=== PATIENT | male | born 1935 | race Caucasian/White ===

== ENCOUNTER 2017-12-30 13:29 | Emergency (ER) | payer MEDICARE, OTHER ==
[~2017-12-30 13:29] MED LIST: ACET325 PO; ALBIPROI INH; ALBU90I INH; ALBU90OI INH; ALLO100 PO; ALPR.5 PO; AMOCLA875 PO; AMOX875 PO; ASPI325; ASPI81CH PO; ASPI81EC PO; ATEN25 PO; ATEN50; ATEN50 PO; AZIT500 PO; BACPOLTO30 TOP; BENZ100A PO; Bactrim Ds Tab1 EACH PO; CEFP200 PO; CITA20 PO; CLIN300 PO; COLCRYS0.6 MG PO; DIAZ5 PO; DIPATR PO; DIPH50 PO; DOC250 PO; DOCU100 PO; FAMO10 PO; FAMO20 PO; FERR325 PO; FIBER LAXATIVE; FINA5 PO; FISH1000 PO; GUAI600T33 PO; HYDACE5325 PO; HYDR1TAB94 PO; IBUP400 PO; ISOMON30 PO; Keflex500 MG PO; LISI10 PO; LISI20; LISI20 PO; LISI5 PO; LOVA20 PO; LOVA40; LOVA40 PO; METO50ER PO; MULVITMIND PO; MULVITMINE PO; NITR.4SL SL; NITR.6SL SL; OXYACE5T PO; PEPCID AC; POLY500 PO; PRED10 PO; PRED20 PO; PROCODE120 PO; ROFE25 PO; RXHYD5325 PO; RXOXYACE PO; RXPROCODSY PO; RXSULTRIDS PO; SENN187 PO; SIMV40; SPACE CHAMBER1 EACH MC; TAMS.4ER PO; TEMA15 PO; Tamiflu75 MG PO; Ultram50 MG PO; WARF10; [UNRECOGNIZED DRUG - OTHER]
== END 2017-12-30 14:03 | disposition left against medical advice (07) ==
LOC: ER 13:29
DX: Z53.21 Procedure and treatment not carried out due to patient leaving prior to being seen by health care provider (principal)

== ENCOUNTER 2018-03-30 16:16 | Emergency (ER) | payer MEDICARE, OTHER ==
[~2018-03-30] VITALS: Ht 172.7 cm; Wt 84.8 kg
[~2018-03-30 16:16] MED LIST changes: +ALBU90OI6 INH
[2018-03-30] MEDS ORDERED: FINA5 PO ×2 (16:40→16:41)
[2018-03-30] MEDS ORDERED: Flomax0.4 MG PO (16:40)
[2018-03-30 17:44] LABS: Source, Urine Catheter
[2018-03-30 17:50] LABS: Appearance, Urine Cloudy (Clear); Bilirubin, Urine Neg (Neg); Blood, Urine 3+ (Neg); Color, Urine Yellow (P-Yellow); Glucose Qualitative, Urine Neg (Neg); Ketones, Urine Neg (Neg); Leukocyte Esterase, Urine 3+ (Neg); Nitrite, Urine Pos (Neg); Protein, Urine 3+ (Neg); Urobilinogen, Urine NORM (Normal)
[2018-03-30 18:00] LABS: White Blood Cells, Urine 50-100 /hpf (0-5)
[2018-03-30 18:01] LABS: Bacteria Many /hpf; Squamous Epithelial Cells Rare /hpf (Few)
[2018-03-30] MEDS ORDERED: CEPH500 PO (18:06)
== END 2018-03-30 18:14 | disposition home or self-care (01) ==
LOC: ER 16:16
PROVIDERS: Physician Assistant
DX: N39.0 Urinary tract infection, site not specified (principal); Z88.1 Allergy status to other antibiotic agents; Z88.8 Allergy status to other drugs, medicaments and biological substances; Z88.5 Allergy status to narcotic agent; Z88.2 Allergy status to sulfonamides; Z79.899 Other long term (current) drug therapy; Z79.82 Long term (current) use of aspirin; Z79.2 Long term (current) use of antibiotics; I25.2 Old myocardial infarction; K21.9 Gastro-esophageal reflux disease without esophagitis; E78.5 Hyperlipidemia, unspecified; Z87.891 Personal history of nicotine dependence
CPT/HCPCS: 51702; 81001; 87077; 87086; 87186; 99283

== ENCOUNTER 2018-04-12 08:57 | Emergency (ER) | END 2018-04-12 11:58 | disposition home or self-care (01) ==

== ENCOUNTER 2018-06-23 07:48 | Emergency (ER) | payer MEDICARE, OTHER ==
[~2018-06-23] VITALS: Ht 172.7 cm; Wt 77.1 kg
[~2018-06-23 07:48] MED LIST changes: -ALBU90OI6 INH; +CEPH500 PO; +Flomax0.4 MG PO
[2018-06-23] MEDS ORDERED: ALPR.5 PO (08:12)
[2018-06-23] MEDS ORDERED: ATEN50 PO (08:13)
[2018-06-23] MEDS ORDERED: THERAPEUTIC-M1 EAC1 PO (08:15)
[2018-06-23] MEDS ORDERED: FISH OIL 1,0001 EAC1 PO (08:15)
[2018-06-23] MEDS ORDERED: NITR.8TP (08:17)
[2018-06-23] MEDS ORDERED: AMLO5 PO (08:17)
[2018-06-23] MEDS ORDERED: Norco 5-325 Ta1 EACH PO (09:35)
== END 2018-06-23 09:41 | disposition home or self-care (01) ==
LOC: ER 07:48
DX: S20.211A Contusion of right front wall of thorax, initial encounter (principal); W18.30XA Fall on same level, unspecified, initial encounter; Z88.8 Allergy status to other drugs, medicaments and biological substances; Z88.1 Allergy status to other antibiotic agents; Z88.5 Allergy status to narcotic agent; Z88.2 Allergy status to sulfonamides; Z79.899 Other long term (current) drug therapy; Z79.82 Long term (current) use of aspirin; Z86.73 Personal history of transient ischemic attack (TIA), and cerebral infarction without residual deficits; I25.2 Old myocardial infarction; K21.9 Gastro-esophageal reflux disease without esophagitis; E78.5 Hyperlipidemia, unspecified
CPT/HCPCS: 71101; 99283-25

== ENCOUNTER 2018-07-14 14:11 | Emergency (ER) | payer MEDICARE, OTHER ==
[~2018-07-14] VITALS: Ht 175.3 cm; Wt 81.7 kg
[~2018-07-14 14:11] MED LIST changes: +AMLO5 PO; +FISH OIL 1,0001 EAC1 PO; +NITR.8TP; +Norco 5-325 Ta1 EACH PO; +THERAPEUTIC-M1 EAC1 PO
[2018-07-14 14:45] LABS: BASOPHILS ABSOLUTE AUTO 0.05 K/mm3 (0.00-0.23); BASOPHILS PERCENT AUTO 1 % (0-2); EOSINOPHILS PERCENT AUTO 4 % (0-6); Hematocrit 45.3 % (37.0-53.0); Hemoglobin 14.9 g/dL (13.5-17.5); IMMATURE GRAN ABSOLUTE AUTO 0.02 K/mm3 (0.00-0.10); IMMATURE GRAN PERCENT AUTO 0 % (0-1); LYMPHOCYTES PERCENT AUTO 20 % (21-46); MONOCYTES ABSOLUTE AUTO 0.64 K/mm3 (0.16-1.47); MONOCYTES PERCENT AUTO 9 % (4-13); Mean Corpuscular HGB 31.2 pg (26.0-34.0); Mean Corpuscular HGB Conc 32.9 g/dL (31.5-36.5); Mean Corpuscular Volume 95 fL (80-100); Mean Platelet Volume 11.6 fL (9.1-12.4); NEUTROPHILS PERCENT AUTO 66 % (41-73); Platelet Count 172 K/mm3 (150-400); RDW Coefficient Variation 12.7 % (11.7-14.2); RDW Standard Deviation 44.3 fL (35.1-46.3); Red Blood Cell Count 4.77 M/mm3 (4.30-5.90); White Blood Cell Count 7.01 K/mm3 (4.00-11.30)
[2018-07-14 15:00] LABS: Albumin, Blood 3.7 g/dL (3.4-5.0); Albumin/Globulin Ratio 0.9 (0.8-1.8); Bilirubin, Total 0.5 mg/dL (0.1-1.0); Bun/Creatinine Ratio 15.4 (12.0-20.0); Calcium, Blood 8.6 mg/dL (8.5-10.1); Creatinine, Blood 1.3 mg/dL (0.60-1.20); Globulin, Blood 4.2 g/dL (2.2-4.0); Potassium, Blood 4.3 mmol/L (3.5-5.5); Total Protein, Blood 7.9 g/dL (6.4-8.2); Troponin I 0.038 ng/mL (0.000-0.040)
[2018-07-14] MEDS ORDERED: Prednisone20 MG PO (16:14)
[2018-07-14] MEDS ORDERED: COMBIVENT RESPIM4 GM INH (16:14)
[2018-07-14] MEDS ORDERED: Zithromax250 MG PO (16:14)
== END 2018-07-14 17:22 | disposition home or self-care (01) ==
LOC: ER 14:11
PROVIDERS: Physician Assistant
DX: J44.1 Chronic obstructive pulmonary disease with (acute) exacerbation (principal); I25.2 Old myocardial infarction; K21.9 Gastro-esophageal reflux disease without esophagitis; E78.5 Hyperlipidemia, unspecified; Z86.73 Personal history of transient ischemic attack (TIA), and cerebral infarction without residual deficits; Z87.891 Personal history of nicotine dependence; Z79.899 Other long term (current) drug therapy; Z79.51 Long term (current) use of inhaled steroids
CPT/HCPCS: 36415; 71046; 80053; 83880; 84484; 85025; 93005; 93010; 94640; 96365; 96375; 99284-25; J0456; J1940; J7050

== ENCOUNTER 2019-02-21 19:34 | Emergency (ER) | payer MEDICARE, OTHER ==
[~2019-02-21] VITALS: Ht 172.7 cm; Wt 86.2 kg
[~2019-02-21 19:34] MED LIST changes: +COMBIVENT RESPIM4 GM INH; +Prednisone20 MG PO; +Zithromax250 MG PO
[2019-02-21 21:26] LABS: BASOPHILS ABSOLUTE AUTO 0.05 K/mm3 (0.00-0.23); BASOPHILS PERCENT AUTO 0 % (0-2); EOSINOPHILS ABSOLUTE AUTO 0.04 K/mm3 (0.00-0.68); EOSINOPHILS PERCENT AUTO 0 % (0-6); Hematocrit 42.5 % (37.0-53.0); Hemoglobin 13.9 g/dL (13.5-17.5); IMMATURE GRAN ABSOLUTE AUTO 0.06 K/mm3 (0.00-0.10); IMMATURE GRAN PERCENT AUTO 0 % (0-1); LYMPHOCYTES PERCENT AUTO 8 % (21-46); MONOCYTES ABSOLUTE AUTO 1.41 K/mm3 (0.16-1.47); MONOCYTES PERCENT AUTO 8 % (4-13); Mean Corpuscular HGB 32.1 pg (26.0-34.0); Mean Corpuscular HGB Conc 32.7 g/dL (31.5-36.5); Mean Corpuscular Volume 98 fL (80-100); Mean Platelet Volume 11.6 fL (9.1-12.4); NEUTROPHILS ABSOLUTE AUTO 14.01 K/mm3 (1.96-9.15); NEUTROPHILS PERCENT AUTO 83 % (41-73); Platelet Count 143 K/mm3 (150-400); RDW Coefficient Variation 13.2 % (11.7-14.2); RDW Standard Deviation 47.4 fL (35.1-46.3); Red Blood Cell Count 4.33 M/mm3 (4.30-5.90); White Blood Cell Count 16.87 K/mm3 (4.00-11.30)
[2019-02-21 21:47] LABS: Alanine Aminotransfer (ALT/SGP 13 U/L (12-78); Albumin, Blood 3.2 g/dL (3.4-5.0); Albumin/Globulin Ratio 0.8 (0.8-1.8); Alk Phos 89 U/L (50-136); Anion Gap 9 mmol/L (6-16); Aspartate Aminotrans (AST/SGOT 11 U/L (12-37); Bilirubin, Total 0.6 mg/dL (0.1-1.0); Blood Urea Nitrogen 27 mg/dL (8-24); Bun/Creatinine Ratio 17.6 (12.0-20.0); CO2, Blood 25 mmol/L (21-32); Calcium, Blood 8.4 mg/dL (8.5-10.1); Chloride, Blood 106 mmol/L (98-108); Creatinine, Blood 1.53 mg/dL (0.60-1.20); Glomerular Filtration Rate 46 (60-); Glucose, Blood 112 mg/dL (70-99); Potassium, Blood 4.1 mmol/L (3.5-5.5); Sodium, Blood 140 mmol/L (136-145); Total Protein, Blood 7.2 g/dL (6.4-8.2); Troponin I <0.015 ng/mL (0.000-0.040)
[2019-02-21] MEDS ORDERED: Vibramycin100 MG PO (23:03)
== END 2019-02-21 23:44 | disposition home or self-care (01) ==
LOC: ER 19:34
PROVIDERS: Physician Assistant
DX: J18.9 Pneumonia, unspecified organism (principal); Z88.1 Allergy status to other antibiotic agents; Z88.8 Allergy status to other drugs, medicaments and biological substances; Z88.2 Allergy status to sulfonamides; Z79.899 Other long term (current) drug therapy; Z79.82 Long term (current) use of aspirin; Z79.52 Long term (current) use of systemic steroids; J44.9 Chronic obstructive pulmonary disease, unspecified; E78.5 Hyperlipidemia, unspecified; K21.9 Gastro-esophageal reflux disease without esophagitis; Z86.73 Personal history of transient ischemic attack (TIA), and cerebral infarction without residual deficits; F41.9 Anxiety disorder, unspecified; Z87.891 Personal history of nicotine dependence
CPT/HCPCS: 36415; 71046; 71260; 80053; 83880; 84484; 85025; 93005; 93010; 93971; 96365-59; 99285-25; J0696; Q9967

== ENCOUNTER 2019-09-12 11:38 | Emergency (ER) | payer MEDICARE ==
[~2019-09-12] VITALS: Ht 172.7 cm; Wt 81.7 kg
[~2019-09-12 11:38] MED LIST changes: +Vibramycin100 MG PO
[2019-09-12 13:01] LABS: BASOPHILS ABSOLUTE AUTO 0.04 K/mm3 (0.00-0.23); BASOPHILS PERCENT AUTO 0 % (0-2); EOSINOPHILS ABSOLUTE AUTO 0.32 K/mm3 (0.00-0.68); EOSINOPHILS PERCENT AUTO 3 % (0-6); Hematocrit 44.9 % (37.0-53.0); Hemoglobin 14.8 g/dL (13.5-17.5); IMMATURE GRAN ABSOLUTE AUTO 0.03 K/mm3 (0.00-0.10); IMMATURE GRAN PERCENT AUTO 0 % (0-1); LYMPHOCYTES ABSOLUTE AUTO 1.24 K/mm3 (0.84-5.20); LYMPHOCYTES PERCENT AUTO 13 % (21-46); MONOCYTES ABSOLUTE AUTO 1.11 K/mm3 (0.16-1.47); MONOCYTES PERCENT AUTO 12 % (4-13); Mean Corpuscular HGB 31.9 pg (26.0-34.0); Mean Corpuscular Volume 97 fL (80-100); Mean Platelet Volume 11.1 fL (9.1-12.4); NEUTROPHILS ABSOLUTE AUTO 6.73 K/mm3 (1.96-9.15); NEUTROPHILS PERCENT AUTO 71 % (41-73); Platelet Count 160 K/mm3 (150-400); RDW Coefficient Variation 13.4 % (11.7-14.2); RDW Standard Deviation 47.8 fL (35.1-46.3); Red Blood Cell Count 4.64 M/mm3 (4.30-5.90); White Blood Cell Count 9.47 K/mm3 (4.00-11.30)
[2019-09-12 13:14] LABS: Albumin, Blood 3.4 g/dL (3.4-5.0); Albumin/Globulin Ratio 0.7 (0.8-1.8); Bilirubin, Total 0.7 mg/dL (0.1-1.0); Bun/Creatinine Ratio 13.6 (12.0-20.0); Calcium, Blood 8.8 mg/dL (8.5-10.1); Creatinine, Blood 1.32 mg/dL (0.60-1.20); Globulin, Blood 4.6 g/dL (2.2-4.0); Potassium, Blood 3.9 mmol/L (3.5-5.5)
== END 2019-09-12 16:15 | disposition home or self-care (01) ==
LOC: ER 11:38
PROVIDERS: Emergency Medicine
DX: J40 Bronchitis, not specified as acute or chronic (principal); I25.2 Old myocardial infarction; K21.9 Gastro-esophageal reflux disease without esophagitis; E78.5 Hyperlipidemia, unspecified; Z86.73 Personal history of transient ischemic attack (TIA), and cerebral infarction without residual deficits; Z88.8 Allergy status to other drugs, medicaments and biological substances; Z88.1 Allergy status to other antibiotic agents; Z88.5 Allergy status to narcotic agent; Z88.2 Allergy status to sulfonamides; Z79.899 Other long term (current) drug therapy; Z79.82 Long term (current) use of aspirin
CPT/HCPCS: 36415; 71046; 80053; 84484; 85025; 94640; 99284-25

== ENCOUNTER → 2019-11-24 | Outpatient (CLI) | payer MEDICARE, OTHER | END | disposition home or self-care (01) | LOC: LAB SHORT 13:20 → LAB EV 13:20 | DX: N39.0 Urinary tract infection, site not specified (principal) | CPT/HCPCS: 87077; 87086; 87186 ==

== ENCOUNTER → 2020-02-13 | Outpatient (CLI) | payer MEDICARE, OTHER | END | disposition home or self-care (01) | LOC: LAB EV 10:14 → LAB SHORT 10:14 | DX: N39.0 Urinary tract infection, site not specified (principal) | CPT/HCPCS: 87077; 87086; 87186 ==

== ENCOUNTER → 2020-12-23 | Outpatient (CLI) | payer MEDICARE, OTHER | LOC: PLD 14:30 → LAB SHORT 14:30 | DX: J44.1 Chronic obstructive pulmonary disease with (acute) exacerbation (principal) | CPT/HCPCS: 87070; 87205 ==

== ENCOUNTER 2021-05-10 12:56 | Emergency (ER) | payer MEDICARE, OTHER ==
[~2021-05-10] VITALS: Ht 177.8 cm; Wt 97.5 kg
== END 2021-05-10 15:53 | disposition home or self-care (01) ==
LOC: ER 12:56
DX: M79.604 Pain in right leg (principal); K21.9 Gastro-esophageal reflux disease without esophagitis; E78.5 Hyperlipidemia, unspecified; Z88.1 Allergy status to other antibiotic agents; Z88.5 Allergy status to narcotic agent; Z88.2 Allergy status to sulfonamides; Z88.8 Allergy status to other drugs, medicaments and biological substances; Z79.82 Long term (current) use of aspirin; Z79.899 Other long term (current) drug therapy; Z87.891 Personal history of nicotine dependence
CPT/HCPCS: 93971; 99283-25

== ENCOUNTER 2021-06-12 01:09 | Emergency (ER) | payer MEDICARE, OTHER ==
[~2021-06-12] VITALS: Ht 182.9 cm; Wt 102.1 kg
[2021-06-12 01:46] LABS: Source, Urine Clean Catch
[2021-06-12 01:53] LABS: Appearance, Urine Cloudy (Clear); Bilirubin, Urine Neg (Neg); Blood, Urine 1+ (Neg); Color, Urine Amber (P-Yellow); Glucose Qualitative, Urine Neg (Neg); Ketones, Urine Neg (Neg); Leukocyte Esterase, Urine 3+ (Neg); Nitrite, Urine Neg (Neg); Protein, Urine 3+ (Neg); Specific Gravity, Urine 1.005 (1.003-1.022); Urobilinogen, Urine 2+ (Normal)
[2021-06-12 01:53] LABS: BASOPHILS ABSOLUTE AUTO 0.05 K/mm3 (0.00-0.23); BASOPHILS PERCENT AUTO 1 % (0-2); EOSINOPHILS ABSOLUTE AUTO 0.22 K/mm3 (0.00-0.68); EOSINOPHILS PERCENT AUTO 3 % (0-6); Hematocrit 45.5 % (37.0-53.0); Hemoglobin 14.9 g/dL (13.5-17.5); IMMATURE GRAN ABSOLUTE AUTO 0.03 K/mm3 (0.00-0.10); IMMATURE GRAN PERCENT AUTO 1 % (0-1); LYMPHOCYTES PERCENT AUTO 17 % (21-46); MONOCYTES ABSOLUTE AUTO 0.56 K/mm3 (0.16-1.47); MONOCYTES PERCENT AUTO 8 % (4-13); Mean Corpuscular HGB 31.7 pg (26.0-34.0); Mean Corpuscular HGB Conc 32.7 g/dL (31.5-36.5); Mean Corpuscular Volume 97 fL (80-100); Mean Platelet Volume 11.5 fL (9.1-12.4); NEUTROPHILS ABSOLUTE AUTO 4.68 K/mm3 (1.96-9.15); NEUTROPHILS PERCENT AUTO 70 % (41-73); Platelet Count 183 K/mm3 (150-400); RDW Coefficient Variation 13.5 % (11.7-14.2); RDW Standard Deviation 48.5 fL (35.1-46.3); White Blood Cell Count 6.64 K/mm3 (4.00-11.30)
[2021-06-12 02:00] LABS: White Blood Cells, Urine 50-100 /hpf (0-5)
[2021-06-12 02:01] LABS: Bacteria Many /hpf; Red Blood Cells, Urine 0-2 /hpf (0-2); Squamous Epithelial Cells Not Seen /hpf (Few); Triple Phosphate Crystals Mod /hpf
[2021-06-12 02:03] LABS: U Amphetamine Screen Not Detected; U Barbituate Screen Not Detected; U Benzodiazapine Screen Not Detected; U Buprenorphine Screen Not Detected; U Cannabinoids Screen Not Detected; U Cocaine Screen Not Detected; U Methadone Screen Not Detected; U Methamphetamine Screen Not Detected; U Opiates Screen DETECTED; U Oxycodone Screen Not Detected; U Phencyclidine Screen Not Detected; U Propoxyphene Screen Not Detected
[2021-06-12 02:11] LABS: Acetaminophen, Random <2.0 ug/mL (10.0-30.0); Alanine Aminotransfer (ALT/SGP 20 U/L (12-78); Albumin, Blood 3.2 g/dL (3.4-5.0); Albumin/Globulin Ratio 0.8 (0.8-1.8); Alk Phos 81 U/L (50-136); Anion Gap 4 mmol/L (6-16); Aspartate Aminotrans (AST/SGOT 21 U/L (12-37); Bilirubin, Total 0.4 mg/dL (0.1-1.0); Blood Urea Nitrogen 19 mg/dL (8-24); CO2, Blood 25 mmol/L (21-32); Calcium, Blood 8.5 mg/dL (8.5-10.1); Chloride, Blood 113 mmol/L (98-108); Creatinine, Blood 1.46 mg/dL (0.60-1.20); Ethanol (Alcohol), Blood, Med <3 mg/dL; Glomerular Filtration Rate 46 (60-); Glucose, Blood 105 mg/dL (70-99); Potassium, Blood 4.5 mmol/L (3.5-5.5); Salicylate <1.7 mg/dL (2.8-20.0); Sodium, Blood 142 mmol/L (136-145); Total Protein, Blood 7.2 g/dL (6.4-8.2)
[2021-06-12] MEDS ORDERED: CEFP200 PO (03:43)
== END 2021-06-12 05:18 | disposition home or self-care (01) ==
LOC: ER 01:09
PROVIDERS: Emergency Medicine
DX: N39.0 Urinary tract infection, site not specified (principal); K21.9 Gastro-esophageal reflux disease without esophagitis; E78.5 Hyperlipidemia, unspecified; Z88.1 Allergy status to other antibiotic agents; Z88.5 Allergy status to narcotic agent; Z88.8 Allergy status to other drugs, medicaments and biological substances; Z88.2 Allergy status to sulfonamides; Z79.82 Long term (current) use of aspirin; Z79.899 Other long term (current) drug therapy; Z87.891 Personal history of nicotine dependence
CPT/HCPCS: 36415; 80053; 81001; 85025; 87086; 93005; 93010; 96365; 99285-25; G0480; J0696; J7030

== ENCOUNTER 2023-02-08 20:17 | Inpatient (IN) | payer OTHER ==
[~2023-02-08] VITALS: Ht 177.8 cm; Wt 76.1 kg
[2023-02-08 20:49] LABS: Base Excess Venous 0.9 mmol/L; Bicarbonate Venous 24.4 mmol/L (24.0-30.0); pH Blood Venous 7.33 (7.34-7.37)
[2023-02-08 20:55] LABS: BASOPHILS ABSOLUTE AUTO 0.14 K/mm3 (0.00-0.23); BASOPHILS PERCENT AUTO 1 % (0-2); EOSINOPHILS ABSOLUTE AUTO 0.05 K/mm3 (0.00-0.68); EOSINOPHILS PERCENT AUTO 0 % (0-6); Hematocrit 39.3 % (37.0-53.0); Hemoglobin 12.7 g/dL (13.5-17.5); IMMATURE GRAN ABSOLUTE AUTO 0.69 K/mm3 (0.00-0.10); IMMATURE GRAN PERCENT AUTO 3 % (0-1); LYMPHOCYTES ABSOLUTE AUTO 0.41 K/mm3 (0.84-5.20); LYMPHOCYTES PERCENT AUTO 2 % (21-46); MONOCYTES ABSOLUTE AUTO 0.77 K/mm3 (0.16-1.47); MONOCYTES PERCENT AUTO 3 % (4-13); Mean Corpuscular HGB 32.4 pg (26.0-34.0); Mean Corpuscular HGB Conc 32.3 g/dL (31.5-36.5); Mean Corpuscular Volume 100 fL (80-100); Mean Platelet Volume 11.4 fL (9.1-12.4); NEUTROPHILS ABSOLUTE AUTO 25.24 K/mm3 (1.96-9.15); NEUTROPHILS PERCENT AUTO 93 % (41-73); NRBC ABSOLUTE 0.02 K/mm3 (0.00-0.02); NRBC Auto 0.1 /100 WBC (0.0-0.2); Platelet Count 468 K/mm3 (150-400); RDW Coefficient Variation 13.7 % (11.7-14.2); RDW Standard Deviation 49.5 fL (35.1-46.3); Red Blood Cell Count 3.92 M/mm3 (4.30-5.90)
[2023-02-08 21:00] LABS: Albumin, Blood 1.8 g/dL (3.4-5.0); Albumin/Globulin Ratio 0.3 (0.8-1.8); Bilirubin, Total 0.8 mg/dL (0.1-1.0); Calcium, Blood 9.5 mg/dL (8.5-10.1); Creatinine, Blood 2.86 mg/dL (0.60-1.20); Globulin, Blood 6.4 g/dL (2.2-4.0); Magnesium, Blood 2.2 mg/dL (1.6-2.4); Potassium, Blood 4.6 mmol/L (3.5-5.5); Total Protein, Blood 8.2 g/dL (6.4-8.2)
[2023-02-08 21:32] LABS: Influenza A, PCR NEGATIVE (NEGATIVE); Influenza B, PCR NEGATIVE (NEGATIVE); Resp Syncytial Virus, PCR NEGATIVE (NEGATIVE); SARS-Cov-2 (COVID-19) PCR, MMC NEGATIVE (NEGATIVE)
[2023-02-08] MEDS ORDERED: ASPI81CH PO (22:57)
[2023-02-08] MEDS ORDERED: ATEN25 PO (22:57)
[2023-02-08] MEDS ORDERED: MELA3 PO (22:58)
[2023-02-08] MEDS ORDERED: HYDROCODONE-AC1 EA19 PO (22:58)
[2023-02-08] MEDS ORDERED: FUROSEMIDE40 MG PO (22:59)
[2023-02-08] MEDS ORDERED: LORA.5 PO (22:59)
[2023-02-08] MEDS ORDERED: POTA10T PO (22:59)
[2023-02-09 00:45] LABS: Source, Urine Foley catheter
[2023-02-09 00:52] LABS: Bilirubin, Urine Neg (Neg); Blood, Urine 5+ (Neg); Glucose Qualitative, Urine Neg (Neg); Ketones, Urine Neg (Neg); Leukocyte Esterase, Urine 3+ (Neg); Nitrite, Urine Neg (Neg); Protein, Urine 3+ (Neg); Urobilinogen, Urine 2+ (Normal)
--- NOTE | 2023-02-09 01:05 | NUR ---
PATIENT TO ROOM FROM ED AT 0020. SLID PATIENT O BED, BEDREST AT BASELINE. PATIENT MOANING AND EYES OPEN BUT UNABLE TO FOLLOW COMMANDS AND NON VERBAL AT BASELINE. HX DEMENTIA. 02 SATS 94% ON 7L VIA NC, LS COARSE TO DIMINISHED. RR 20s, PRODUCTIVE COUGH. HR SR 80s WITH PVCs. BP STABLE AT THIS TIME. TEMP VAUGHAN PATENT AND DRAINING TO GRVAITY, MINIMAL URINE OUTPUT, DARK WESTLEY. PHOTO OF WOUND ON COCCYX IN CHART. PATIENT REPOSITIONED AND RESTING.
[2023-02-09 01:15] LABS: Appearance, Urine Turbid (Clear); Color, Urine Yellow (P-Yellow)
[2023-02-09] MEDS ORDERED: LIDO700A20 TOP (01:17)
[2023-02-09 01:18] LABS: Amorphous Light (0-Heavy); Bacteria Mod /hpf; Red Blood Cells, Urine 50-100 /hpf (0-2); Squamous Epithelial Cells Not Seen /hpf (Few); White Blood Cells, Urine TNTC /hpf (0-5)
[2023-02-09] MEDS ORDERED: OMEP20ER PO (01:18)
[2023-02-09] MEDS ORDERED: TIMO.5OPSO RIGHTEYE (01:20)
[2023-02-09 05:51] LABS: BASOPHILS ABSOLUTE AUTO 0.08 K/mm3 (0.00-0.23); BASOPHILS PERCENT AUTO 0 % (0-2); EOSINOPHILS ABSOLUTE AUTO 0.11 K/mm3 (0.00-0.68); EOSINOPHILS PERCENT AUTO 1 % (0-6); Hematocrit 33.1 % (37.0-53.0); Hemoglobin 10.7 g/dL (13.5-17.5); IMMATURE GRAN ABSOLUTE AUTO 0.32 K/mm3 (0.00-0.10); IMMATURE GRAN PERCENT AUTO 1 % (0-1); LYMPHOCYTES ABSOLUTE AUTO 0.51 K/mm3 (0.84-5.20); LYMPHOCYTES PERCENT AUTO 2 % (21-46); MONOCYTES PERCENT AUTO 2 % (4-13); Mean Corpuscular HGB 32.3 pg (26.0-34.0); Mean Corpuscular HGB Conc 32.3 g/dL (31.5-36.5); Mean Corpuscular Volume 100 fL (80-100); Mean Platelet Volume 11.2 fL (9.1-12.4); NEUTROPHILS ABSOLUTE AUTO 22.28 K/mm3 (1.96-9.15); NEUTROPHILS PERCENT AUTO 94 % (41-73); Platelet Count 337 K/mm3 (150-400); RDW Coefficient Variation 13.7 % (11.7-14.2); RDW Standard Deviation 50.1 fL (35.1-46.3); Red Blood Cell Count 3.31 M/mm3 (4.30-5.90)
--- NOTE | 2023-02-09 05:58 | NUR ---
SHIFT SUMMARY PATIENT REMAINS ALERT, MOANING AND UNABLE TO FOLLOW COMMANDS. RIGHT SIDE WEAKNES WITH HX CVA. MEDICATED FOR PAIN PER EMAR, PATIENT STILL MOANING. 02 SATS 98% ON 8L VIA NC, LS COARSE. NT SUCTIONED THICK KNOX SPUTUM, PATIENT HAS WEAK COUGH. HR SR 70s WITH PVCs AND PACs, ESTEFANIA DOWN TO THE 40s BRIEFLY. BP WITH MAP >65. TEMP VAUGHAN PATENT AND DRAINING MINIMAL WESTLEY URINE, 30 MLS THIS SHIFT. PATIENT REPOSITIONED Q2 HOURS.
[2023-02-09 06:20] LABS: Alanine Aminotransfer (ALT/SGP 12 U/L (12-78); Albumin, Blood 1.4 g/dL (3.4-5.0); Albumin/Globulin Ratio 0.3 (0.8-1.8); Alk Phos 90 U/L (50-136); Anion Gap 5 mmol/L (6-16); Aspartate Aminotrans (AST/SGOT 28 U/L (12-37); Bilirubin, Total 0.7 mg/dL (0.1-1.0); Blood Urea Nitrogen 103 mg/dL (8-24); Bun/Creatinine Ratio 36.3 (12.0-20.0); CO2, Blood 27 mmol/L (21-32); Calcium, Blood 8.2 mg/dL (8.5-10.1); Chloride, Blood 115 mmol/L (98-108); Creatinine, Blood 2.84 mg/dL (0.60-1.20); Glomerular Filtration Rate 21 (60-); Glucose, Blood 150 mg/dL (70-99); Potassium, Blood 4.2 mmol/L (3.5-5.5); Sodium, Blood 147 mmol/L (136-145); Total Protein, Blood 6.4 g/dL (6.4-8.2); Vancomycin, Random 15.1 ug/mL
--- NOTE | 2023-02-09 08:07 | NUR ---
ASSUMED CARE REPORT FROM CYN HAYES AT 0700. PT RESTING IN BED. MOANING. DOES NOT RESPOND TO VERBAL STIMULI. DOES NOT MAKE EYE CONTACT OR FOLLOW COMMANDS. WITHDRAWS FROM PAINFUL STIMULI. NO MOVEMENT OR WITHDRAWAL TO RUE. LUNGS COARSE THROUGHOUT. 8L VIA HFNC. O2 SATS >94%. MOIST COUGH. ORAL CARE PERFORMED. SR c PVCS ON MONITOR, RATE 70'S. BP STABLE. ABD ROUND, SOFT, NON TENDER. BT X 4. NPO D/T ASPIRATION RISK. VAUGHAN PATENT, DRAINING WESTLEY URINE TO GRAVITY. STAGE 2 ULCER TO COCCXY, SEE WOUND ASSESSMENT. WILL CONTINUE TO MONITOR.
--- NOTE | 2023-02-09 11:15 | NUR ---
Pt was admitted to ICU with aspiration pneumonia. He has a long history of dementia, and is no longer verbal. Spoke to pt's Mayra by phone this morning. She reports she recently placed the pt "Bill" into [facility] as she was no longer able to meet his needs as his dementia had worsened considerably. After discussing his current condition with , she has elected to begin comfort care, and send him home to [facility] with [facility]. Bedside RN Tiffany and [place] Operator Jewell aware, and message left for Dr. Poole, requesting return call and orders for comfort care and d/c with hospice.
--- NOTE | 2023-02-09 12:36 | NUR ---
Received v/o from Dr. Poole for comfort care, and home with hospice.
--- NOTE | 2023-02-09 14:14 | NUR ---
Pt has a morphine allergy per his chart. Changed roxanol to oxycodone liquid, same concentration.
--- NOTE | 2023-02-09 14:59 | NUR ---
"Spiritual Care | Nurse request Pt. has been recently identified as Comfort Care. Spouse is not available to be at bedside due to illness. Pt. identifies as a man of sirisha. Though Pt. is non-responsive, Prayed with Pt. and gave him a pastoral blessing. Will remain available to the Pt. and family should they arrive before D/C."
--- NOTE | 2023-02-09 16:32 | NUR ---
"Spiritual Care Visit | Comfort Care - [facility] Pt. is on comfort care. Spouse and granddaughter are present. After introductions, faciltate a life review with the family memebrs. Listen with empathy, interest and calming presence. Rapport is established. As we talk, the family shares they have made arrangements with the [employer]. As I normalize the Pt. Experience the family chooses [facility] as their home. Continue with rapport building, Scripture is read and prayers are given. The family does not expect any other visitors. The family verbalizes gratitude for thee spiritual care visit. This milker machine will remain available throughout his shift."
--- NOTE | 2023-02-09 16:57 | NUR ---
SHIFT SUMMARY PT STATUS CHANGED TO MEDICAL, COMFORT CARE. NO ACUTE CHANGES. RESPONSIVE TO PAINFUL STIMULI. OCCASIONALLY MOANS. MEDICATED PER EMAR FOR PAIN. REMOVED O2, DOES NOT APPEAR AIR HUNGRY. FAMILY VISITED. SELECTED [facility]. WILL CONTINUE TO MONITOR UNTIL REPORT TO ONCOMING NURSE.
--- NOTE | 2023-02-09 19:54 | NUR ---
ASSUMED CARE AT 1900 PATIENT IS RESTING COMFORTABLY. REPSONDING TO TOUCH. ON RA, 02 SATS IN THE 80s. VAUGHAN REMIANS IN PLACE AND DRAINING MINIMAL AMOUNT OF URINE. REPOSITIONED. CALL LIGHT IN REACH
--- NOTE | 2023-02-10 04:55 | NUR ---
SHIFT SUMMARY PATIENT RESTING COMFORTABLY. PRN PAIN MEDICATION GIVEN, SEE EMAR. REPOSITIONED FOR COMFORT. VAUGHAN PATENT AND DRAINING TO GRAVITY. UPDATED FAMILY OVER THE PHONE.
--- NOTE | 2023-02-10 09:11 | NUR ---
0800 assume care of patient Patient resting in bed however did start moaning this am. Skin care done, pain patch put to lower mid back, oxycodone orally given for general aches and pains and comfort. pain scale stated 3/10 on FLACC. Patient has 68% Fio2 on room air. Patient moves extrem. to stimuli, right pupil reactive to light size 2 and right eye not reactive to light size 4. Patient has course lung sounds throughout. abd soft however hypobowel tones. patient has wound to coccyx with mepilex on in place.. pictures in chart. patient has 2 piv both saline locked flushed easily no blood return from either. edema to lower extrem. 2+ at ankles. ppp x 4 extrem. skin warm to touch however dry and pale. [address] Carolina about palliative care specialist request for dc orders and side rail orders in retirement. Patient was turned to right side and resting comfortable 30 post pain med given.
--- NOTE | 2023-02-10 11:04 | NUR ---
"Spiritual Care | EOL Pt. and this district traffic chief was called to room. Prayed prayer of blessing over the Pt. and provided a comfort care quilt behalf of the hospital. Based on conversations on 02/09, the family has chosen [facility] for services."
--- NOTE | 2023-02-10 11:07 | NUR ---
AT 1045 PATIENT STARTING HAVE MORE BRADYCARDIA. AT 1050 HE HAS NO PULSE NO RR. STAFF WAS AT HIS BEDSIDE WHEN PATIENT PAST AWAY. FAMILY WAS CALLED AND WILL BE AT BEDSIDE AT 2-3PM TODAY. FINAL DC COMPLETED BY TALCER. PATIENT SCHEDULER AWARE AND BRITT AWARE.
--- NOTE | 2023-02-10 14:39 | NUR ---
1420 FAMILY JUST ARRIVED TO PATIENTS BEDSIDE TO SAY THEIR LAST GOODBYES
--- NOTE | 2023-02-10 15:17 | NUR ---
Spiritual Care Visit (see note for: [facility]) Pt. had earlier in the day. Spouse and daughter are ppresent. Pastoral care and comfort are given to the faimly. Family clarified that the Pt. has made pre-paid arrangements with the [employer] for his remains. Prayed with family. Family verbalized gratitude for the spiritual care visit. This rn care manager gave contact information to the nursing staff. The protocol for picking up of the body of someone who has prepaid arrangements with the [employer] is as follows... 1. after the last family member has left the room of the Pt, 2. nursing staff should call The "[facility]" in [employer] ([phone]) who has the local contract with the [employer]. 3. [employer] will contact a local home to picker tender the .
== END 2023-02-10 10:50 | DRG 871 ==
LOC: ER 20:17 → PCU 23:53 → ICUE 23:53
PROVIDERS: Emergency Medicine; ADMIT Student in an Organized Health Care Education/Training Program
PROC: 3E03329 Introduction of Other Anti-infective into Peripheral Vein, Percutaneous Approach (ICD-10-PCS; principal; 2023-02-08)
PROC: 0T9B70Z Drainage of Bladder with Drainage Device, Via Natural or Artificial Opening (ICD-10-PCS; 2023-02-08)
PROC: 5A0935A Assistance with Respiratory Ventilation, Less than 24 Consecutive Hours, High Flow/Velocity Cannula (ICD-10-PCS; 2023-02-09)
DX: A41.1 Sepsis due to other specified staphylococcus (principal); G92.8 Other toxic encephalopathy; J69.0 Pneumonitis due to inhalation of food and vomit; J96.01 Acute respiratory failure with hypoxia; J96.02 Acute respiratory failure with hypercapnia; J18.9 Pneumonia, unspecified organism; J44.0 Chronic obstructive pulmonary disease with (acute) lower respiratory infection; N17.9 Acute kidney failure, unspecified; N18.4 Chronic kidney disease, stage 4 (severe); E87.20 Acidosis, unspecified; R65.20 Severe sepsis without septic shock; Z66 Do not resuscitate; Z51.5 Encounter for palliative care; I12.9 Hypertensive chronic kidney disease with stage 1 through stage 4 chronic kidney disease, or unspecified chronic kidney disease; F02.80 Dementia in other diseases classified elsewhere, unspecified severity, without behavioral disturbance, psychotic disturbance, mood disturbance, and anxiety; M10.9 Gout, unspecified; K21.9 Gastro-esophageal reflux disease without esophagitis; E78.5 Hyperlipidemia, unspecified; I25.10 Atherosclerotic heart disease of native coronary artery without angina pectoris; Z20.822 Contact with and (suspected) exposure to COVID-19; B96.89 Other specified bacterial agents as the cause of diseases classified elsewhere; Z86.14 Personal history of Methicillin resistant Staphylococcus aureus infection; Z86.73 Personal history of transient ischemic attack (TIA), and cerebral infarction without residual deficits; I25.2 Old myocardial infarction; Z98.890 Other specified postprocedural states; Z98.42 Cataract extraction status, left eye; Z98.41 Cataract extraction status, right eye; Z95.1 Presence of aortocoronary bypass graft; Z87.891 Personal history of nicotine dependence; Z88.1 Allergy status to other antibiotic agents; Z88.8 Allergy status to other drugs, medicaments and biological substances; Z88.2 Allergy status to sulfonamides; Z88.5 Allergy status to narcotic agent; Z79.899 Other long term (current) drug therapy; Z79.811 Long term (current) use of aromatase inhibitors; B96.3 Hemophilus influenzae [H. influenzae] as the cause of diseases classified elsewhere
CPT/HCPCS: 0241U; 31720; 36415; 51702; 71045; 80053; 80202; 81001; 82803; 83605; 83735; 83880; 84484; 85025; 87040; 87070; 87077; 87086; 87185; 87186; 87205; 93005; 93010; 96361-59; 96365-59; 96367-59; 99285-25; A9270; J0295; J1644; J2543; J3010; J3370; J7030; J7050; J7120